=== PATIENT | female | born 1990 | race Caucasian/White ===

== ENCOUNTER 2016-04-29 19:50 | Emergency (ER) | payer MEDICAID ==
[~2016-04-29] VITALS: Ht 154.9 cm; Wt 54.5 kg
[~2016-04-29 19:50] MED LIST: ACETAMINOPHEN W1 TA6 PO; ALBUTEROL0.09 MG/A4 IH; ALBUTEROL0.83 MG/ML IH; AMOXICILLIN/CLA1 TA1 PO; ANTIBIOTIC; ANUSOL HC CREAM30 GM TP; AVELOX 400MG T400 MG PO; BCP TD; BUSPAR10 MG; CARAFATE 1GM1 G PO; CEPHALEXIN500 M1 PO; CIPRO 500MG TA500 MG PO; CLEOCIN HC150 MG/CAP PO; CLINDAMYCIN300 MG PO; CLONAZEPAM0.5 M1 PO; DEPO PROVER150 MG/ML IM; DEPO-PROVER150 MG/M1 IM; DESYREL 100MG100 MG PO; DIFLUCAN 100MG100 MG PO; DIFLUCAN150 MG PO; DOXYCYCLINE 10100 MG PO; FLAGYL500 MG PO; FLUOXETINE20 MG PO; GENERESS FE 0.01 CTB; GENTAMICIN EYE D5 ML OU; HYDROCODONE/APAP; KLONOPIN 0.5MG0.5 MG; KLONOPIN 0.5MG0.5 MG PO; LEVAQUIN 2250 MG/TAB PO; LEVAQUIN 5500 MG/TA1 PO; LORTAB 5/500 501 TAB PO; LORTAB ELIX0.5 MG/ML PO; MACROBID 1100 MG/CAP PO; MAGIC MOUTH PO; MAGIC MOUTHWASH1 M1 PO; MEDROL 4MG DOSPA4 MG PO; METHYLPHENIDATE; METRONIDAZOLE500 MG PO; MOTRIN 200200 MG/TAB PO; MOTRIN800 MG PO; NAPROSYN500 MG PO; NEXIUM 40MG40 MG PO; NO HOME MEDICATIONS; NORCO 325 MG-51 TAB PO; NORCO 325 MG-7.1 TAB PO; NYSTATIN 100MU/M1 ML PO; NYSTATIN OR100 MU/ML PO; OMNICEF 300MG300 MG PO; PEN-VEE K500 MG PO; PENICILLIN V500 MG PO; PERCOCET 325 MG1 TA2 PO; PERCOCET 500 MG1 TAB PO; PERIDEX (CHLOR480 ML MM; PHENERGAN 25 TA25 MG PO; PHENERGAN W/CO120 ML PO; PHENERGAN25 MG RC; PREDNISONE20 MG PO; PRENATAL1 TA6 PO; PROVENTIL0.09 MG/A1 IH; RITALIN 5MG5 MG/TAB PO; RITALIN LA30 MG PO; RITALIN PO; SODIUM CHLORIDE45 ML NS; TESSALON PERLE200 MG PO; TRAZADONE HYDR100 MG PO; TRILEPTAL 150M150 MG PO; TUSS PO; VICODIN 5/5001 UDTAB PO; XANAX 1MG1 MG PO; ZITHROMAX 250M250 MG PO; ZITHROMAX Z PA250 MG PO; ZOFRAN4 M1 PO; [UNRECOGNIZED DRUG - REMARK]
[2016-04-29 19:52] VITALS: TEMP 97.9
[2016-04-29] MEDS ORDERED: PRENATAL 19 CH1 EACH PO (20:11)
[2016-04-29 20:38] VITALS: BP 114/71; PULSE 98
== END 2016-04-29 21:55 | disposition home or self-care (01) ==
LOC: COL.ER 19:50
DX: J45.901 Unspecified asthma with (acute) exacerbation (principal)
CPT/HCPCS: J8540

== ENCOUNTER 2016-05-23 01:01 | Emergency (ER) | payer MEDICAID ==
[~2016-05-23] VITALS: Ht 154.9 cm; Wt 54.5 kg
[~2016-05-23 01:01] MED LIST changes: +PRENATAL 19 CH1 EACH PO
[2016-05-23 01:56] LABS: BASO % 0.1 % (0.0-2.0); EOS # 0.1 (0.0-0.7); EOS % 0.8 % (0-4.0); GRAN # 5.4 (1.4-6.5); HEMOGLOBIN 12.2 g/dl (12.5-16.0); LYMPH # 1.6 (1.2-3.4); LYMPH % 21.4 % (20.0-51.0); MEAN CELL VOLUME 87 fl (80.0-100.0); MEAN CORPUSCULAR HEMOGLOBIN 30 pg (27.0-31.0); MEAN CORPUSCULAR HGB CONC 35 g/dl (33.0-37.0); MEAN PLATELET VOLUME 10.2 fl (7.4-10.4); MONO # 0.4 (0.1-0.6); MONO % 5.8 % (1.7-9.3); PLATELET COUNT 241 K/mm3 (130-400); RED BLOOD COUNT 4.08 M/mm3 (4.10-5.30); REDCELL DISTRIBUTION WIDTH-CV 12.5 % (11.5-14.5); WHITE BLOOD COUNT 7.6 K/mm3 (4.8-10.8)
[2016-05-23 02:03] LABS: HEMATOCRIT 35.3 % (37.0-47.0)
[2016-05-23 02:12] LABS: ALBUMIN 3.5 gm/dL (3.5-5.0); BILIRUBIN,TOTAL 0.6 mg/dL (0.0-1.0); C-REACTIVE PROTEIN 3.3 mg/dL (0.0-0.9); CALCIUM 8.6 mg/dL (8.4-10.2); CREATININE, serum 0.57 mg/dL (0.52-1.25); POTASSIUM 3.5 mmol/L (3.4-5.0); TOTAL PROTEIN 6.5 gm/dL (6.4-8.2)
[2016-05-23 02:36] LABS: PH 8 (5-8); SQUAMOUS EPITHELIAL 0-2 /hpf; URINE APPEARANCE Clear; URINE BACTERIA Rare /hpf; URINE BILIRUBIN Negative (NEGATIVE); URINE BLOOD Negative (NEGATIVE); URINE COLOR Yellow; URINE GLUCOSE Negative (NEGATIVE); URINE KETONE Negative (NEGATIVE); URINE RBC 0-2 /hpf; URINE UROBILINOGEN Negative (NEGATIVE)
[2016-05-23 02:45] LABS: INFLUENZA B NEGATIVE
[2016-05-23 03:52] VITALS: BP 106/51; PULSE 86; TEMP 98.8
== END 2016-05-23 03:53 | disposition home or self-care (01) ==
LOC: COL.ER 01:01
PROVIDERS: Emergency Medicine
DX: O98.512 Other viral diseases complicating pregnancy, second trimester (principal); R09.89 Other specified symptoms and signs involving the circulatory and respiratory systems; Z3A.16 16 weeks gestation of pregnancy; O99.332 Smoking (tobacco) complicating pregnancy, second trimester; F17.210 Nicotine dependence, cigarettes, uncomplicated
CPT/HCPCS: J7030

== ENCOUNTER 2016-06-06 18:17 | Emergency (ER) | payer MEDICAID ==
[~2016-06-06] VITALS: Ht 154.9 cm; Wt 54.5 kg
[2016-06-06 18:20] VITALS: TEMP 98.4
[2016-06-06 19:53] VITALS: BP 114/66; PULSE 88
== END 2016-06-06 19:53 | disposition home or self-care (01) ==
LOC: COL.ER 18:17
DX: O9A.212 Injury, poisoning and certain other consequences of external causes complicating pregnancy, second trimester (principal); S93.402A Sprain of unspecified ligament of left ankle, initial encounter; S93.601A Unspecified sprain of right foot, initial encounter; S96.911A Strain of unspecified muscle and tendon at ankle and foot level, right foot, initial encounter; W19.XXXA Unspecified fall, initial encounter; Z3A.17 17 weeks gestation of pregnancy

== ENCOUNTER 2016-07-09 13:08 | Emergency (ER) | payer MEDICAID ==
[~2016-07-09] VITALS: Ht 152.4 cm; Wt 61.4 kg
[2016-07-09 13:10] VITALS: BP 114/58; PULSE 97; TEMP 97.9
[2016-07-09] MEDS ORDERED: PRENATAL 19 CH1 EACH PO (13:15)
[2016-07-09] MEDS ORDERED: VITAMIN B COMPL1 T16 PO (13:16)
[2016-07-09] MEDS ORDERED: CLEOCIN HCL300 MG PO (13:41)
[2016-07-09] MEDS ORDERED: NORCO 325 MG-51 TAB PO (13:56)
[2016-07-09] MEDS ORDERED: SEPTRA DS 8001 TAB PO (21:22)
== END 2016-07-09 14:00 | disposition home or self-care (01) ==
LOC: COL.ER 13:08
DX: O99.712 Diseases of the skin and subcutaneous tissue complicating pregnancy, second trimester (principal); L03.113 Cellulitis of right upper limb; Z3A.22 22 weeks gestation of pregnancy

== ENCOUNTER 2016-07-09 20:17 | Emergency (ER) | payer MEDICAID ==
[~2016-07-09] VITALS: Ht 152.4 cm; Wt 59.1 kg
[~2016-07-09 20:17] MED LIST changes: +CLEOCIN HCL300 MG PO; +VITAMIN B COMPL1 T16 PO
[2016-07-09 20:21] VITALS: BP 115/60
[2016-07-09] MEDS ORDERED: SEPTRA DS 8001 TAB PO (21:22)
[2016-07-09 21:30] LABS: MEAN CELL VOLUME 90 fl (80.0-100.0); MEAN CORPUSCULAR HGB CONC 34 g/dl (33.0-37.0); MEAN PLATELET VOLUME 9.8 fl (7.4-10.4); PLATELET COUNT 408 K/mm3 (130-400); RED BLOOD COUNT 3.71 M/mm3 (4.10-5.30)
[2016-07-09 21:34] LABS: HEMATOCRIT 33.2 % (37.0-47.0); HEMOGLOBIN 11.2 g/dl (12.5-16.0); MEAN CORPUSCULAR HEMOGLOBIN 30 pg (27.0-31.0); WHITE BLOOD COUNT 22.4 K/mm3 (4.8-10.8)
[2016-07-09 21:41] LABS: ANISOCYTOSIS 1+; BAND 12 % (0-10); EOSINOPHIL 1 % (0-4); METAMYELOCYTE 2 % (0-0); MYELOCYTE 3 % (0-0); NEUTROPHILS 63 % (42.0-75.2); PLATELET ESTIMATE INCREASED (NORMAL); TOTAL CELLS COUNTED 100
[2016-07-09 21:42] LABS: ADD PATHOLOGY DIFF REVIEW YES
[2016-07-09 22:02] VITALS: PULSE 86; TEMP 98.4
[2016-07-11 14:25] LABS: PATHOLOGY DIFF REVIEW OK
== END 2016-07-09 22:11 | disposition home or self-care (01) ==
LOC: COL.ER 20:17
PROVIDERS: Emergency Medicine
DX: O99.712 Diseases of the skin and subcutaneous tissue complicating pregnancy, second trimester (principal); L02.413 Cutaneous abscess of right upper limb; L03.113 Cellulitis of right upper limb; Z3A.22 22 weeks gestation of pregnancy; B95.1 Streptococcus, group B, as the cause of diseases classified elsewhere
CPT/HCPCS: J2270

== ENCOUNTER 2016-07-11 10:47 | Emergency (ER) | payer MEDICAID ==
[~2016-07-11] VITALS: Ht 152.4 cm; Wt 58.2 kg
[~2016-07-11 10:47] MED LIST changes: +SEPTRA DS 8001 TAB PO
[2016-07-11 11:00] VITALS: BP 116/72; PULSE 89; TEMP 98
[2016-07-11 11:58] LABS: MEAN CELL VOLUME 89 fl (80.0-100.0); MEAN CORPUSCULAR HGB CONC 33 g/dl (33.0-37.0); PLATELET COUNT 433 K/mm3 (130-400); RED BLOOD COUNT 3.86 M/mm3 (4.10-5.30); REDCELL DISTRIBUTION WIDTH-CV 17.1 % (11.5-14.5); WHITE BLOOD COUNT 14.6 K/mm3 (4.8-10.8)
[2016-07-11 12:00] LABS: HEMATOCRIT 34.5 % (37.0-47.0); HEMOGLOBIN 11.5 g/dl (12.5-16.0); MEAN CORPUSCULAR HEMOGLOBIN 30 pg (27.0-31.0)
[2016-07-11 12:01] LABS: ADD PATHOLOGY DIFF REVIEW NO
[2016-07-11 12:14] LABS: BAND 17 % (0-10); EOSINOPHIL 1 % (0-4); METAMYELOCYTE 2 % (0-0); MYELOCYTE 1 % (0-0); NEUTROPHILS 40 % (42.0-75.2); PLATELET ESTIMATE NORMAL (NORMAL); TOTAL CELLS COUNTED 100
[2016-07-11] MEDS ORDERED: NORCO 325 MG-51 TAB PO (12:50)
[2016-07-12] MEDS ORDERED: CEPHALEXIN500 M1 PO (17:07)
== END 2016-07-11 13:02 | disposition home or self-care (01) ==
LOC: COL.ER 10:47
PROVIDERS: Physician Assistant
DX: O99.712 Diseases of the skin and subcutaneous tissue complicating pregnancy, second trimester (principal); L03.113 Cellulitis of right upper limb; L02.413 Cutaneous abscess of right upper limb; Z3A.23 23 weeks gestation of pregnancy

== ENCOUNTER 2016-07-12 15:38 | Emergency (ER) | payer MEDICAID ==
[~2016-07-12] VITALS: Ht 154.9 cm; Wt 58.2 kg
[2016-07-12 15:41] VITALS: BP 113/58; TEMP 97.9
[2016-07-12] MEDS ORDERED: CEPHALEXIN500 M1 PO (17:07)
[2016-07-12 17:38] VITALS: PULSE 84
== END 2016-07-12 17:43 | disposition home or self-care (01) ==
LOC: COL.ER 15:38
DX: O99.712 Diseases of the skin and subcutaneous tissue complicating pregnancy, second trimester (principal); L02.413 Cutaneous abscess of right upper limb; Z3A.00 Weeks of gestation of pregnancy not specified

== ENCOUNTER 2017-11-27 14:39 | Emergency (ER) | payer MEDICAID ==
[~2017-11-27] VITALS: Ht 154.9 cm; Wt 59.1 kg
[2017-11-27 14:44] VITALS: BP 140/83; PULSE 97; TEMP 98.6
[2017-11-27] MEDS ORDERED: OXAYDO5 MG PO (15:00)
[2017-11-27] MEDS ORDERED: AMOXICILLIN 50500 MG PO (15:00)
[2017-11-27] MEDS ORDERED: OXY IR5 MG PO (16:03)
== END 2017-11-27 15:18 | disposition home or self-care (01) ==
LOC: COL.ER 14:39
DX: K04.7 Periapical abscess without sinus (principal); Z88.6 Allergy status to analgesic agent; Z87.81 Personal history of (healed) traumatic fracture

== ENCOUNTER → 2018-01-17 | Outpatient (REF) ==
[~2018-01-17] MED LIST changes: +AMOXICILLIN 50500 MG PO; +OXAYDO5 MG PO; +OXY IR5 MG PO
== END ==
LOC: ZLAB.WCH 08:37
DX: Z01.89 Encounter for other specified special examinations (principal)

== ENCOUNTER → 2018-01-30 | Outpatient (REF) ==
[~2018-01-30] MED LIST changes: +ATIVAN 0.50.5 MG/TAB PO; +CEFAZOLIN1 G1 IV; +IBU600 MG PO; +LASIX 20MG TABL20 MG PO; +OXYCONTIN 10MG10 MG PO; +PROTONIX 40MG T40 MG PO; +ULTRAM 50MG TAB50 MG PO; +ZOFRAN 4MG T4 MG/TAB PO
== END ==
LOC: ZLAB.WCH 11:01
DX: Z01.89 Encounter for other specified special examinations (principal)

== ENCOUNTER 2018-01-31 11:15 | Outpatient (CLI) | payer MEDICAID ==
[~2018-01-31] VITALS: Ht 154.9 cm; Wt 67.0 kg
[2018-01-31 11:35] VITALS: BP 151/109; PULSE 66; TEMP 97.5
== END 2018-01-31 15:44 | disposition home or self-care (01) ==
LOC: EUO 11:15
DX: Z45.2 Encounter for adjustment and management of vascular access device (principal)
CPT/HCPCS: C1751; C1894

== ENCOUNTER → 2018-02-01 | Outpatient (REF) | LOC: ZLAB.WCH 08:49 | DX: Z01.89 Encounter for other specified special examinations (principal) ==

== ENCOUNTER 2018-09-09 21:51 | Observation (INO) | payer SELFPAY ==
[~2018-09-09] VITALS: Ht 154.9 cm; Wt 54.8 kg
[2018-09-09 22:42] LABS: BASO % 0.2 % (0.0-2.0); EOS # 0.1 (0.0-0.7); EOS % 0.7 % (0-4.0); GRAN # 10.5 (1.4-6.5); GRAN % 65.2 % (42.2-75.2); HEMATOCRIT 47.2 % (37.0-47.0); HEMOGLOBIN 15.1 g/dl (12.5-16.0); LYMPH % 24.5 % (20.0-51.0); MEAN CELL VOLUME 88 fl (80.0-100.0); MEAN CORPUSCULAR HEMOGLOBIN 28 pg (27.0-31.0); MEAN CORPUSCULAR HGB CONC 32 g/dl (33.0-37.0); MEAN PLATELET VOLUME 10.1 fl (7.4-10.4); MONO # 1.5 (0.1-0.6); PLATELET COUNT 271 K/mm3 (130-400); RED BLOOD COUNT 5.36 M/mm3 (4.10-5.30); REDCELL DISTRIBUTION WIDTH-CV 13.1 % (11.5-14.5)
[2018-09-09 22:55] LABS: ALBUMIN 4.3 gm/dL (3.5-5.0); BILIRUBIN,TOTAL 0.9 mg/dL (0.0-1.0); C-REACTIVE PROTEIN 6.8 mg/dL (0.0-0.9); CALCIUM 9.2 mg/dL (8.4-10.2); CREATININE, serum 1.26 (0.52-1.25); POTASSIUM 3.9 mmol/L (3.4-5.0); TOTAL PROTEIN 8.3 gm/dL (6.4-8.2)
[2018-09-09 23:32] LABS: COLLECTION METHOD CLEAN CATCH
[2018-09-09 23:41] LABS: PH 6 (5-8); URINE APPEARANCE Cloudy; URINE BACTERIA Many /hpf; URINE BILIRUBIN Negative (NEGATIVE); URINE BLOOD 3+ (NEGATIVE); URINE COLOR Yellow; URINE GLUCOSE Negative (NEGATIVE); URINE KETONE Negative (NEGATIVE); URINE LEUKOCYTE ESTERASE 3+ (NEGATIVE); URINE NITRATE Negative (NEGATIVE); URINE PROTEIN(semi-quant) 2+ (NEGATIVE); URINE RBC 20-50 /hpf
[2018-09-10 01:53] VITALS: BP 129/72; PULSE 105; TEMP 98
--- NOTE | 2018-09-10 03:46 | NUR ---
Patient arrieved to medical floor room 318 at approximately 0100. Did complain of pain to back upon arrival, and had received Morphine while in the ER. During assessment, patient kept falling asleep, and had to be woken up to answer questions. Easily awakened. NS running at 150 ml/hr to peripheral IV to right upper arm. Site is patent, and without redness, warmth, swelling, and pain. Given IV Rocephin per orders. LS CTA. HRR. BSAx4. Multiple scarring areas to BUE. Denies having any needs or concerns. Restingin bed wtih eyes closed at this time. Call light is within reach. Fiance is at bedside.
--- NOTE | 2018-09-10 04:59 | NUR ---
Patient received PRN Morphine, 1 mg IV as requested for pain to back and flank areas. No further complaints of pain or discomfort voiced at this time. NS continues at 150 mls/hr to peripheral IV site to right upper arm. Site is without redness, warmth, swelling, and pain. Fiance remains at bedside. Has voiced no other needs or concerns at this time. Resting in bed with eyes closed at this time. Call light is within reach.
[2018-09-10 05:43] VITALS: BP 122/68; PULSE 108; TEMP 99.6
[2018-09-10 07:09] VITALS: BP 117/62; PULSE 100; TEMP 98.8
[2018-09-10 08:35] LABS: CALCIUM 8.6 mg/dL (8.4-10.2); CREATININE, serum 1.2 (0.52-1.25); MAGNESIUM 1.8 mg/dL (1.6-2.3); PHOSPHOROUS 3.6 mg/dL (2.5-4.5); POTASSIUM 3.9 mmol/L (3.4-5.0)
[2018-09-10 08:41] LABS: BASO # 0.1 (0.0-0.2); BASO % 0.4 % (0.0-2.0); EOS # 0.3 (0.0-0.7); EOS % 2.6 % (0-4.0); GRAN # 7.5 (1.4-6.5); GRAN % 61.3 % (42.2-75.2); HEMATOCRIT 40.6 % (37.0-47.0); LYMPH # 3.2 (1.2-3.4); LYMPH % 26.3 % (20.0-51.0); MEAN CELL VOLUME 88 fl (80.0-100.0); MEAN CORPUSCULAR HEMOGLOBIN 28 pg (27.0-31.0); MEAN CORPUSCULAR HGB CONC 32 g/dl (33.0-37.0); MEAN PLATELET VOLUME 10.7 fl (7.4-10.4); MONO # 1.1 (0.1-0.6); MONO % 8.9 % (1.7-9.3); PLATELET COUNT 234 K/mm3 (130-400); RED BLOOD COUNT 4.61 M/mm3 (4.10-5.30); REDCELL DISTRIBUTION WIDTH-CV 13.2 % (11.5-14.5)
[2018-09-10 08:48] LABS: HEMOGLOBIN 12.9 g/dl (12.5-16.0)
--- NOTE | 2018-09-10 11:19 | NUR ---
Pt lying in bed, alert and oriented, C/O pain 10/10 to her backside. Medication adminsitered. Completed morning assessment. Breathinig even and unlabored, denies shortness of breath. Denies any chest pain. Ultrasound in room. Will continue to monitor. Call light in reach.
[2018-09-10 11:38] VITALS: BP 117/61; PULSE 92; TEMP 98
--- NOTE | 2018-09-10 15:25 | NUR ---
SW met with patient to discuss discharge planning. Patient lives independently at home with her mother. Patient reports she does not have a PCP and is not interested in getting set up with one because she is unsure of how long she will be in [place]. Patient's preferred pharmacy is [facility] and she denies difficulties obtaining medications. Patient does not use any home health services or DME. SW does not anticipate any discharge needs.
[2018-09-10 16:00] VITALS: BP 106/72; PULSE 90; TEMP 98
--- NOTE | 2018-09-10 16:59 | NUR ---
Surgical floor called up to let us know pt has gone down their elevator. Pt disconnected herself from IV fluids and left without alerting staff. Alerted security.
--- NOTE | 2018-09-10 17:55 | NUR ---
Pt lying in bed, no distress noted, eating and drinking fluids with no complaints, has been walking around the halls and down the elevator, stated she needs to move for her back. Fluids stopped per doctor order. C/O pain to her back, states the morphine is no longer helping. Will continue to monitor. Call light in reach.
--- NOTE | 2018-09-10 18:01 | NUR ---
Bed alarm turned on to alert staff if pt is going to leave floor to smoke again.
[2018-09-10 18:43] VITALS: BP 117/60; PULSE 85; TEMP 98.7
--- NOTE | 2018-09-10 19:38 | NUR ---
Pt C/O pain 12/01 to back. Gave 2mg morphine and hand turned red with white welts and some swelling. Wrapped in warm towel, called [facility], got orders for benadryl and fentanyl. Added morphine to allergy list as previous welts appeared earlier in day. Gave hand off report to Kayy CHRISTIANSON.
--- NOTE | 2018-09-10 20:30 | NUR ---
Shift assessment complete. Patient in bed, awake. Discussed with patient that she is not to leave the unit/3rd floor. Asked patient if she needs a nicotine patch and she stated, "yes, I have been asking for one all day." Will notify DARIEN Jon. When assessing BLE, change room attendant was found in the bed. Told patient lighters cannot be in patient room. Home Appliance Technician removed from the room with the patient's permission. Placed in patient's med drawer. Left hand noted to be red and swollen, consistent with shift report. IV flushed with NS, patient stated, it felt tender, but did not hurt. Benedryl IV given per order. Patient stated that it was slightly painful. IV flushed with NS to clear the line, and pain resolved per patient statement. Told patient we would continue to monitor the IV site and if the redness did not resolve, IV would need to be removed. IV start kit, 2 flushes, and 2 IV catheters at bedside, items removed from the room given patient's IV drug use history. Patient asked when she could have IV pain medication, informed her that she could have it at 2130. Patient very polite and agreeable to plan for pain medication. Will continue to monitor.
--- NOTE | 2018-09-10 21:15 | NUR ---
Entered room to check on patient, and patient not in bed. Shower was running, so I called her name with no response. I said her name again, and after a short delay, she responded and said she was showering. A man opened the door, and the patient was in the shower. I reminded her that she was supposed to call if she needed to get up. I also reminded her that she needed to ask to have her IV wrapped up for showers. She apologized, and then showed me that her IV had "blood in the line." Her IV was flushed and clamped at 2030. The blood in line indicated the IV may have been manipulated by either the patient, or the patient's friend who was in the bathroom with her. The patient denied manipulating her IV. Will notify DARIEN Jon and continue to monitor. RESIN FILTERER in room to assist patient with her shower/getting back to bed.
--- NOTE | 2018-09-10 21:30 | NUR ---
Danay. LABOR COMMISSIONER and Jermaine, Livestock Judging Coach on Unit to address concerns of patient's visitor, along with the visitor being in bathroom with patient in the shower. Security also present. All updated. Will continue to assess.
--- NOTE | 2018-09-10 21:59 | NUR ---
Called by Lacey Macias to address concerns with patient and patient's room guest regarding possible drug use, IV concerns and lighters found in patient's bed. Patient found showering in room with assistance from friend, nurse knocked on door with delay in response from patient. Atomic Spectroscopist found in bed, patient's states "that is his fountain dispenser." After shower patient pointed out to nurse that her IV now has blood return, this was flushed previously and clamped by nurse. I discussed concerns about patient's safety, concerns about IV placement and patient manipulating IV and concerns about patients freind being in room. I asked that he leave for the night due to concerns for her safety and this being after visiting hours. Patient upset, unwilling to dismiss friend for the night and stated "I will just leave against medical advice." I encouraged patient to stay but that her friend would have to leave for the night for her safety. Patient denied to stay, refused to sign against medical advice form and left with her belongings. IV removed prior to her leaving. Patient encouraged to return to the emergency department with worsening symtoms for further conerns. The patient used vulger languane and stated "I'll just go to [facility]. They know me there." Patient escorted out by security.
== END 2018-09-10 22:00 | disposition left against medical advice (07) ==
LOC: COL.ER 21:51 → MEDICAL 09-10 00:08
PROVIDERS: Emergency Medicine; Hospitalist; ADMIT Internal Medicine
DX: A41.51 Sepsis due to Escherichia coli [E. coli] (principal); N17.9 Acute kidney failure, unspecified; N10 Acute pyelonephritis; R07.9 Chest pain, unspecified; R00.0 Tachycardia, unspecified; F41.9 Anxiety disorder, unspecified; F17.210 Nicotine dependence, cigarettes, uncomplicated; F19.10 Other psychoactive substance abuse, uncomplicated; Z80.1 Family history of malignant neoplasm of trachea, bronchus and lung
CPT/HCPCS: A4216; G0378; J0696; J1200; J1644; J2270; J2405; J2543; J7030

== ENCOUNTER 2018-11-23 17:23 | Inpatient (IN) | payer SELFPAY ==
[~2018-11-23] VITALS: Ht 154.9 cm; Wt 53.7 kg
[2018-11-23 17:36] LABS: COLLECTION METHOD CLEAN CATCH
[2018-11-23 17:47] LABS: MUCOUS Present /lpf; PH 6 (5-8); SQUAMOUS EPITHELIAL None Seen /hpf; URINE APPEARANCE Cloudy; URINE BACTERIA Rare /hpf; URINE BILIRUBIN Negative (NEGATIVE); URINE BLOOD 3+ (NEGATIVE); URINE COLOR Yellow; URINE GLUCOSE Negative (NEGATIVE); URINE KETONE Negative (NEGATIVE); URINE LEUKOCYTE ESTERASE 3+ (NEGATIVE); URINE NITRATE Positive (NEGATIVE); URINE PROTEIN(semi-quant) 2+ (NEGATIVE); URINE RBC >50 /hpf
[2018-11-23 18:44] LABS: BASO % 0.3 % (0.0-2.0); EOS # 0.3 (0.0-0.7); EOS % 2.2 % (0-4.0); GRAN % 65.8 % (42.2-75.2); HEMATOCRIT 37.6 % (37.0-47.0); LYMPH # 3.5 (1.2-3.4); MEAN CELL VOLUME 84 fl (80.0-100.0); MEAN CORPUSCULAR HEMOGLOBIN 27 pg (27.0-31.0); MEAN CORPUSCULAR HGB CONC 32 g/dl (33.0-37.0); MEAN PLATELET VOLUME 9.7 fl (7.4-10.4); MONO # 1.2 (0.1-0.6); MONO % 8.1 % (1.7-9.3); PLATELET COUNT 262 K/mm3 (130-400); RED BLOOD COUNT 4.47 M/mm3 (4.10-5.30); REDCELL DISTRIBUTION WIDTH-CV 14.6 % (11.5-14.5)
[2018-11-23 19:05] LABS: ERYTHROCYTE SEDIMENTATION RATE 47 mm/hr (0-20)
[2018-11-23 19:12] LABS: ALANINE AMINOTRANSFERASE 8 U/L (9-52); ALBUMIN 3.8 gm/dL (3.5-5.0); ALKALINE PHOSPHATASE 115 U/L (50-136); ANION GAP 11 mmol/L (7-16); AST,SGOT 19 U/L (15-37); BILIRUBIN,TOTAL 0.8 mg/dL (0.0-1.0); BLOOD UREA NITROGEN 13 mg/dL (7-17); CALCIUM 8.7 mg/dL (8.4-10.2); CARBON DIOXIDE 26 mmol/L (22-30); CHLORIDE 102 mmol/L (98-107); CREATININE, serum 0.97 (0.52-1.25); GLUCOSE 108 mg/dL (74-106); LIPASE 14 U/L (23-300); POTASSIUM 3.3 mmol/L (3.4-5.0); SODIUM 139 mmol/L (137-145); TOTAL PROTEIN 7.5 gm/dL (6.4-8.2)
[2018-11-23 19:21] LABS: TROPONIN-I < 0.012 ng/mL (0.000-0.035)
[2018-11-23 19:29] LABS: INR 1.3 (0.8-3.0); PROTHROMBIN TIME 15.3 SECONDS (9.7-12.8)
[2018-11-23 19:45] LABS: C-REACTIVE PROTEIN 14.1 mg/dL (0.0-0.9)
--- NOTE | 2018-11-23 20:08 | NUR ---
Pt. arrived to the floor via wheelchair. Pt. is A&OX3, assessment complete. INT to rt. IJ, INT to lt. wrist. Pt. reports pain at a 8 on pain scale at this time. Pt. denies further needs, call light within reach.
[2018-11-23 20:49] VITALS: BP 111/68; PULSE 96; TEMP 98.1
--- NOTE | 2018-11-23 22:30 | NUR ---
IV's to rt. EJ and lt. wrist leaking sites discontinued, new IV access established to lt. upper arm. Allision notified of dilaudid dose leaking out of IV site. Order to give now dilaudid dose received.
[2018-11-23 23:25] VITALS: BP 122/70; PULSE 92; TEMP 98.9
[2018-11-24 03:22] VITALS: BP 110/64; PULSE 101; TEMP 99.6
[2018-11-24 08:13] LABS: BASO % 0.3 % (0.0-2.0); EOS # 0.4 (0.0-0.7); EOS % 3.2 % (0-4.0); GRAN # 6.7 (1.4-6.5); GRAN % 58.8 % (42.2-75.2); HEMOGLOBIN 10.5 g/dl (12.5-16.0); LYMPH # 3.1 (1.2-3.4); LYMPH % 27.1 % (20.0-51.0); MEAN CELL VOLUME 85 fl (80.0-100.0); MEAN CORPUSCULAR HEMOGLOBIN 27 pg (27.0-31.0); MEAN CORPUSCULAR HGB CONC 32 g/dl (33.0-37.0); MEAN PLATELET VOLUME 10.6 fl (7.4-10.4); MONO # 1.1 (0.1-0.6); PLATELET COUNT 222 K/mm3 (130-400); RED BLOOD COUNT 3.92 M/mm3 (4.10-5.30); REDCELL DISTRIBUTION WIDTH-CV 14.9 % (11.5-14.5)
[2018-11-24 08:25] LABS: HEMATOCRIT 33.2 % (37.0-47.0)
--- NOTE | 2018-11-24 08:30 | NUR ---
Assessment complete. Pt resting in bed with eyes closed upon entry, awakens to stimuli and asks about pain medication which is administered per orders. Pt reports pain is in bilat flanks 8 out of 10 on pain scale. IVF's infusing per orders through left upper arm site without s/s of complications. No further needs reported. Call light in reach.
[2018-11-24 08:40] LABS: CALCIUM 8.3 mg/dL (8.4-10.2); CREATININE, serum 0.95 (0.52-1.25); POTASSIUM 3.5 mmol/L (3.4-5.0)
[2018-11-24 09:13] VITALS: BP 102/64; PULSE 92; TEMP 98.2
[2018-11-24 10:17] LABS: TRICYCLIC ANTIDEPRESS URINE NEGATIVE
[2018-11-24 12:22] VITALS: BP 113/66; PULSE 88; TEMP 98
--- NOTE | 2018-11-24 12:51 | NUR ---
Pt reports the pain medication administered approx 30 minutes ago has not provided relief. This nurse explains we need to allow 45 minutes to 1 hour before trying more medication. Discussed the situation with the provider.
--- NOTE | 2018-11-24 15:39 | NUR ---
ARCHANA met with patient to discuss options for her health and life. Patient reports that she resides locally but is being evicted on November 25 due to non payment. Patient reports that she has a boyfriend and a 2 year old DTR. The DTR is in DCF custody due to her substance use. Patient reports that she does not have a PCP an no Job. 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 Patient reports that she has been struggling with the addiction for years and was in a rehab 4 years ago. Patient reports ghazala she uses [facility] for medications. Patient reports that she has transportation. Patient indicated that she will be homeless tomorrow. SW called [facility] at [phone] to assist patient with placement as she will be Detoxing soon. Patient is agreeable in this moment to go to rehab. [facility] stated they can not do and intake until Monday. They will call client on monday to assist her in (inpatient treatment.). Nothing further.
[2018-11-24 17:02] VITALS: BP 114/73; PULSE 94; TEMP 98.1
--- NOTE | 2018-11-24 18:30 | NUR ---
Pt resting in bed with eyes closed, report with MEGHAN Nagy. IVF's infusing per orders. Call light in reach.
[2018-11-24 19:36] VITALS: BP 129/68; PULSE 95; TEMP 98.3
--- NOTE | 2018-11-24 19:51 | NUR ---
Patient assessed at this time. Alert and oriented x 4, and able to make needs known. Reports pain to left flank, radiating to entire back, rated as an 8. Given PRN Dilaudid. IV site to left upper arm is without redness, warmth, swelling, and pain. NS running at 150 ml/hr. Requested Ativan. When brought to patient, patient stated that she was having nausea, and had emesis after her last dose. Requesting medication be changed to IV, and requesting Dilaudid to be increased back to Q2H PRN for pain, stating that she has been in severe pain all day. Attempted to call CHEMICAL DEPENDENCY PROFESSIONAL, but is in the process of admitting another patient at this time. Will talk with CHEMICAL DEPENDENCY PROFESSIONAL when available. Patient updated. Holding oral Ativan for right now. Denies having SOB and dyspnea. Denies cough. Voice slightly hoarse. LS CTA. Respirations even and unlabored. HRR. Telemetry intact. BSAx4. Abdomen soft and non-tender. No edema noted. Does complain of burning and pain with urination. States that it has gotten a little better. States she is having urinary frequency, urgency, and retention. Continues on IV Rocephin per orders. No adverse effects to antibiotic treatment noted at this time, except for nausea. Will request PRN Zofran when talking with CHEMICAL DEPENDENCY PROFESSIONAL. Resting in bed at this time. Call light is within reach.
--- NOTE | 2018-11-24 20:30 | NUR ---
Spoke with STOCK CRANE OPERATOR. Received orders for the following: Hold PO Ativan. Change to Ativan 0.5 mg IV Q6H PRN. Zofran 4 mg Q6H PRN. Patient given PRN Ativan IV as well as Zofran IV. Patient complaining of pain. Given PRN Roxicodone. Voices no other questions, needs, or concerns at this time. Resting in bed with call light within reach.
--- NOTE | 2018-11-24 22:15 | NUR ---
Patient was requesting medication to help her sleep. Stated that when she was at [facility], they gave her Ambien to help her sleep. Unknown dosage. Also stated that she took "Xanax 2mg bar." Called [facility]. New order for Melatonin 9 mg QHS. Before giving medication this nurse asked how her nausea was, and stated that it was better. Explained order for Melatonin. Patient questioning why she couldn't get IV medication, stating that he was affraid that she would throw up her pills. Asked again about nausea, and stated that she continued to have "bad nausea." This nurse asked if she would try medicine first, then if she did have any emesis to let this nurse know and look at emesis (no emesis has been seen by staff so far). Stated she would. Took Melatonin. Asked about pain medications. Explained that next PRN Dilaudid dose could be at 2345. Voiced understanding. Voices no other questions, needs, or concerns at this time. Call light is within reach.
[2018-11-24 23:06] VITALS: BP 112/57; PULSE 94; TEMP 98.1
[2018-11-25 03:46] VITALS: BP 114/80; PULSE 80; TEMP 98.2
--- NOTE | 2018-11-25 05:55 | NUR ---
Patient has been received PRN Dilaudid about every 4 hours per PRN order, and PRN Roxicodone about every 4 hours per PRN order. Around 329, patient was complaining of severe level 10 pain. Called [facility] and updated on patient's pain, as patient could not take any other pain medication until 414. One time order received for Motrin 400 mg. Given to patient. Patient has also been using warm packs to back. About 414, patient stated that her pain had gone down some. Given PRN Dilaudid as requested per PRN order. Also given PRN Ativan for anxiety as requested. Denies having any nausea, and given sandwich. Denied having any emesis during the night, and none was seen. States that overal her pain has gotten worse overnight, and feels as if she may be passing a kidney stone. Continues to have burning, pain, and discomfort with urination, as well as feelings of urinary frequency, urgency, and retention. Patient has not voiced any further complaints of pain or discomfort at this time. NS continues to run at 150 ml/hr to left upper arm. When checking IV pump, IV pump was turned off. Patient stated that it was beeping, so she turned if off. Reminded patient that it is important for her to receive IV fluids, and voiced understanding. Told patient that next time she should call and we would fix the IV pump. Voiced understanding. Lockout switch turned on. When checking on again, the pump was again turned off. Patient stated that she didn't know why it was turned off or how it got turned off. Turned back on and lockout turned back on. Again encouraged patient to not mess with the IV pump. Resting in bed with call light within reach at this time.
[2018-11-25 08:29] VITALS: BP 119/75; PULSE 82; TEMP 97.7
--- NOTE | 2018-11-25 09:15 | NUR ---
Patient called out saying she is wanting to leave against medical advice. Dr Quinn said he was gong to talk to her before she left. The patient removed her IV and left before signing the AMA form or speaking with the physician. Patient was refusing most cares this morning prior to leaving. Would not allow this nurse to do an assessment. She also would not keep her traffic reporter on. Antibiotics called into [facility], attempted to notify patient that the antibiotics were ordered but the phone number was not hers. She did take all her belongings with here when she left.
--- NOTE | 2018-11-25 09:25 | NUR ---
Abx prescription called to [facility] pharmacy per verbal orders.
== END 2018-11-25 09:15 | disposition left against medical advice (07) | DRG 872 ==
LOC: COL.ER 17:23 → MEDICAL 19:26
PROVIDERS: Emergency Medicine; Nurse Practitioner Family; ADMIT Family Medicine
DX: A41.9 Sepsis, unspecified organism (principal); N12 Tubulo-interstitial nephritis, not specified as acute or chronic; J45.909 Unspecified asthma, uncomplicated; N83.202 Unspecified ovarian cyst, left side; N83.201 Unspecified ovarian cyst, right side; F90.9 Attention-deficit hyperactivity disorder, unspecified type; B96.20 Unspecified Escherichia coli [E. coli] as the cause of diseases classified elsewhere; F17.210 Nicotine dependence, cigarettes, uncomplicated; N20.0 Calculus of kidney; E87.6 Hypokalemia; F41.9 Anxiety disorder, unspecified; Z53.21 Procedure and treatment not carried out due to patient leaving prior to being seen by health care provider; Z88.0 Allergy status to penicillin; Z88.5 Allergy status to narcotic agent; Z88.8 Allergy status to other drugs, medicaments and biological substances; Z88.1 Allergy status to other antibiotic agents
CPT/HCPCS: 99222-AI; A4216; J0696; J1170; J1650; J2060; J2405; J3010; J7030

== ENCOUNTER 2018-12-30 18:54 | Emergency (ER) | payer SELFPAY ==
[~2018-12-30] VITALS: Ht 154.9 cm; Wt 54.5 kg
[2018-12-30 18:57] VITALS: BP 134/80; PULSE 96; TEMP 98.7
[2018-12-30 20:29] LABS: HEMATOCRIT 47.8 % (37.0-47.0); HEMOGLOBIN 15.1 g/dl (12.5-16.0); MEAN CELL VOLUME 87 fl (80.0-100.0); MEAN CORPUSCULAR HEMOGLOBIN 28 pg (27.0-31.0); MEAN CORPUSCULAR HGB CONC 32 g/dl (33.0-37.0); MEAN PLATELET VOLUME 10.3 fl (7.4-10.4); PLATELET COUNT 290 K/mm3 (130-400); REDCELL DISTRIBUTION WIDTH-CV 16.6 % (11.5-14.5)
[2018-12-30 20:37] LABS: INR 0.9 (0.8-3.0); PROTHROMBIN TIME 10.9 SECONDS (9.7-12.8)
[2018-12-30 20:45] LABS: COLLECTION METHOD CLEAN CATCH
[2018-12-30 20:52] LABS: ALANINE AMINOTRANSFERASE < 6 U/L (9-52); ALBUMIN 4.9 gm/dL (3.5-5.0); ALKALINE PHOSPHATASE 127 U/L (50-136); ANION GAP 12 mmol/L (7-16); AST,SGOT 25 U/L (15-37); BILIRUBIN,TOTAL 0.4 mg/dL (0.0-1.0); BLOOD UREA NITROGEN 16 mg/dL (7-17); CALCIUM 9.6 mg/dL (8.4-10.2); CARBON DIOXIDE 27 mmol/L (22-30); CHLORIDE 103 mmol/L (98-107); CREATININE, serum 1.23 (0.52-1.25); GLUCOSE 82 mg/dL (74-106); LIPASE 52 U/L (23-300); POTASSIUM 3.9 mmol/L (3.4-5.0); SODIUM 142 mmol/L (137-145); TOTAL PROTEIN 8.7 gm/dL (6.4-8.2)
[2018-12-30 20:53] LABS: MUCOUS Present /lpf; PH 5 (5-8); URINE APPEARANCE Cloudy; URINE BACTERIA None Seen /hpf; URINE BILIRUBIN Negative (NEGATIVE); URINE BLOOD 1+ (NEGATIVE); URINE COLOR Yellow; URINE GLUCOSE Negative (NEGATIVE); URINE KETONE Negative (NEGATIVE); URINE LEUKOCYTE ESTERASE Negative (NEGATIVE); URINE NITRATE Negative (NEGATIVE); URINE PROTEIN(semi-quant) 1+ (NEGATIVE)
[2018-12-30 21:01] LABS: EOSINOPHIL 6 % (0-4); LYMPHOCYTE 50 % (20.0-51.0); NEUTROPHILS 40 % (42.0-75.2); OVALOCYTES 1+; PLATELET ESTIMATE NORMAL (NORMAL); TEAR DROP CELLS 2+
[2018-12-30 21:02] LABS: STOMATOCYTE 1+
[2018-12-30 21:04] LABS: TROPONIN-I < 0.012 ng/mL (0.000-0.035)
[2018-12-30] MEDS ORDERED: OMNICEF 300MG300 MG PO (22:22)
== END 2018-12-30 23:10 | disposition home or self-care (01) ==
LOC: COL.ER 18:54
PROVIDERS: Emergency Medicine
DX: R07.9 Chest pain, unspecified (principal); F90.9 Attention-deficit hyperactivity disorder, unspecified type; J45.909 Unspecified asthma, uncomplicated; F17.210 Nicotine dependence, cigarettes, uncomplicated; F12.90 Cannabis use, unspecified, uncomplicated
CPT/HCPCS: A4216; J0696; J1885; J2405; J3010; J7030; Q9967